=== PATIENT | female | born 1960 | race Caucasian/White ===

== ENCOUNTER 2016-11-18 04:43 | Inpatient (IN) | payer OTHER, MEDICAID ==
[~2016-11-18] VITALS: Ht 154.9 cm; Wt 113.4 kg
[~2016-11-18 04:43] MED LIST: ASPIR-LOW81 M1 PO; CIP500 PO; GOOD SENSE ASPI81 M3 PO; LOM PO; MOT800 PO; PRI20 PO; ZES20 PO; ZESTRIL20 MG PO; ZOF4 PO
--- NOTE | 2016-11-18 06:02 | NUR ---
PT PRESENTS TO ED WITH C/O RIGHT BIG TOE SWELLING AND REDNESS. PT REPORTS SHE FRACTURED TOE X2 MONTHS AGO AND WAS DIAGNOSED WITH OSTEOMYLITIS. PT STATES SHE WAS ON ANTIBIOTICS X3 WKS AND REDNESS AND PAIN HAD GONE AWAY. 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 PT DENIES ANY PAIN. PT DENIES ANY FEVERS. RESPIRATIONS EVEN AND UNLABORED. NO ACUTE DISTRESS NOTED. BED IN LOW POSITION. CALL LIGHT WITHIN REACH.
--- NOTE | 2016-11-18 06:10 | NUR ---
LAB AT BEDSIDE.
[2016-11-18 06:40] LABS: CALCIUM 9.2 mg/dL (8.5-10.1); CARBON DIOXIDE 26.9 mmol/L (21-32); CHLORIDE SERUM 101 mmol/L (98-107); GFR1 > 60 mL/min; GLUCOSE SERUM 184 mg/dL (74-106); POTASSIUM SERUM 3.8 mmol/L (3.5-5.1); SODIUM SERUM 137 mmol/L (136-145)
[2016-11-18 06:43] LABS: PLATELET COUNT 192 x10^3mcL (130-400)
[2016-11-18 06:44] LABS: RED CELL DISTRIBUTION WIDTH 18.3 % (11.5-14.5)
[2016-11-18 06:45] LABS: ALBUMIN 3.5 g/dL (3.4-5.0); ALKALINE PHOSPHATASE 82 U/L (46-116); ALT/SGPT 38 U/L (14-59); AST/SGOT 29 U/L (15-37); BILIRUBIN TOTAL 0.44 mg/dL (0.20-1.00); TOTAL PROTEIN, SERUM 8.3 g/dL (6.4-8.2)
--- NOTE | 2016-11-18 06:51 | NUR ---
PORTABLE XRAY AT BEDSIDE.
--- NOTE | 2016-11-18 07:12 | NUR ---
REPORT GIVEN TO [employer] VERIFIER.
[2016-11-18] MEDS ORDERED: COZAAR25 M1 PO (07:17)
[2016-11-18] MEDS ORDERED: LEVO-T25 MCG PO (07:17)
[2016-11-18] MEDS ORDERED: GOOD SENSE OMEP20 MG PO (07:18)
[2016-11-18] MEDS ORDERED: LOVASTATIN40 MG PO (07:18)
[2016-11-18] MEDS ORDERED: ADULT LOW DOSE81 MG PO (07:18)
[2016-11-18] MEDS ORDERED: FUROSEMIDE20 MG PO (07:19)
--- NOTE | 2016-11-18 07:42 | NUR ---
PT ADMIT TO TELE ROOM 221B GAVE REPORT TO CINDY
[2016-11-18 07:53] LABS: BAND NEUTROPHIL 3 % (0-10); BASOPHIL 0 % (0-2); MONOCYTE 13 % (0-7); PLATELET MORPHOLOGY PLATELETS NORMAL; SEGMENTED NEUTROPHILS 10 % (37-75)
[2016-11-18 07:54] LABS: rbc morphology (normal/abnorm) ABNORMAL (NORMAL)
--- NOTE | 2016-11-18 08:00 | NUR ---
RECEIVED PT. FROM ER DEPT. A/A/O X4. NO SOB, NO N/V NOTED. DENIES ANY PAIN AT THIS TIME. IV H/L NOTED TO R HAND. DAUGHTER AT BEDSIDE. DAUGHTER STATED HER MOM (THE PATIENT) WAS ADMITTED FOR INFECTION ON HER R GREAT TOE. R GREAT TOE IS MILDLY REDDENED AND SWOLLEN. B/P= 125/70, P= 76, R.R.= 18, T= 98.3, O2 SAT.= 98% (RA). PT. IS PLACED ON TELE. MONITOR #15, WHICH SHOWS NSR. BED IN LOW POS., CALL LIGHT WITHIN REACH. SIDE RAILS UP X3.
--- NOTE | 2016-11-18 09:00 | NUR ---
CALLED AND REPORTED REPEATED LACTIC ACID LEVEL (2.8) TO DR. DE LA PAZ (DO SAND TECHNOLOGIST). NO FURTHER ORDER RECEIVED AT THIS TIME.
[2016-11-18 09:45] VITALS: BP 121/68
[2016-11-18 10:33] VITALS: BP 125/70
[2016-11-18 10:36] LABS: FREE T4 1.19 ng/dL (0.76-1.46); T4(THYROXINE) 9.3 ug/dL (4.7-13.3)
[2016-11-18 10:48] LABS: T3 TOTAL 1.08 ng/mL
[2016-11-18 10:50] LABS: CHOLESTEROL/HDL RATIO 4.4; PHOSPHOROUS 4.3 mg/dL (2.5-4.9)
[2016-11-18 14:37] VITALS: BP 118/65
[2016-11-18 17:38] VITALS: BP 120/76
--- NOTE | 2016-11-18 18:49 | NUR ---
URINE COLLECTED AND SENT TO LAB. FOR UA, URINE C/S, AND UDS.
[2016-11-18 18:59] LABS: microscopic required? NO
--- NOTE | 2016-11-18 19:10 | NUR ---
RECEIVED PATIENT RESTING IN BED. PATIENT IS ALERT, AWAKE, AND ORIENTED X4. TELE #15 SINUS RHYTHM. PATIENT DENIES PAIN OR DISCOMFORT. LUNG SOUNDS CLEAR. NO SHORTNESS OF BREATH NOTED. MILD SWELLING AND REDNESS NOTED TO RIGHT GREAT TOE. IV FLUID INFUSING TO RIGHT HAND PER DOCTOR'S ORDER. INTACT AND PATENT. SAFETY AND COMFORT MEASURES IN PLACE. BED IN LOWEST POSITION. CALL LIGHT WITHIN REACH. WILL CONTINUE TO MONITOR.
[2016-11-18 19:26] LABS: UA SPECIFIC GRAVITY 1.015 (1.005-1.035); urine erythrocyte NEGATIVE (NEGATIVE)
[2016-11-18 19:36] LABS: AMPHETAMINE QUAL UR NONE DETECTED (NEG <=1000)
[2016-11-18 22:04] VITALS: BP 135/75
--- NOTE | 2016-11-19 05:15 | NUR ---
PATIENT RESTING IN BED. NO DISTRESS NOTED. IV FLUID INFUSING WELL. CALL LIGHT WITHIN REACH. WILL CONTINUE TO MONITOR.
[2016-11-19 05:57] VITALS: BP 138/79
[2016-11-19 06:33] LABS: CARBON DIOXIDE 30.8 mmol/L (21-32); CHLORIDE SERUM 104 mmol/L (98-107); GFR1 > 60 mL/min; GLUCOSE SERUM 124 mg/dL (74-106); POTASSIUM SERUM 3.8 mmol/L (3.5-5.1); SODIUM SERUM 141 mmol/L (136-145)
[2016-11-19 07:04] LABS: PLATELET COUNT 199 x10^3mcL (130-400)
[2016-11-19 07:07] LABS: RED CELL DISTRIBUTION WIDTH 18.4 % (11.5-14.5)
--- NOTE | 2016-11-19 07:15 | NUR ---
RECEIVED PATIENT AWAKE AND ALERT, NO ACUTE DISTRESS NOTED, DENIES PAIN, IV INTACT, CALL LIGHT WITHIN REACH. POC UPDATED.
--- NOTE | 2016-11-19 08:09 | NUR ---
DR. NULL SEEN PATIENT AT BEDSIDE, PATIENT DTR ASSISTED WITH TRANSLATION, PER DOCTOR RT BIG TOE SWELLING DUE TO OLD FX, REQUIRED ELEVATED. RLE ELEVATED WITH PILLOW ORDERED.
--- NOTE | 2016-11-19 08:32 | NUR ---
PATIENT RESTING IN BED NO COMPLAINTS, DR EVANS AND TEAM ROUND AT THIS TIME, ANSWER ALL QUESTIONS AND EXPLAINED POC, PER MD MONITOR RT GREAT TOE SWELLING, ABX TX, AND ORDER PT EVAL.
--- NOTE | 2016-11-19 09:23 | NUR ---
PATIENT RESTING IN BED NO COMPLAINT, DTR REMAIN AT BEDSIDE. DUE MEDS GIVEN, NEEDS ANTICIPATED. POC UPDATED. ALL QUESTIONS ANSWER. CONT TO MONITOR.
[2016-11-19 10:13] VITALS: BP 130/78
--- NOTE | 2016-11-19 10:58 | NUR ---
PATIENT AWAKE IN BED WITH FAMILY MEMBERS AT BEDSIDE, INFORM PATIENT OF GOING OF FLOOR FOR CT, IV HEPLOCK. TECH AT BEDSIDE WHEEL PATIENT OFF FLOOR.
[2016-11-19 11:11] LABS: BAND NEUTROPHIL 0 % (0-10); BASOPHIL 0 % (0-2); MONOCYTE 9 % (0-7)
[2016-11-19 11:12] LABS: PLATELET MORPHOLOGY PLATELETS DECREASED; rbc morphology (normal/abnorm) ABNORMAL (NORMAL)
--- NOTE | 2016-11-19 12:02 | NUR ---
PATIENT RESTING IN BED NO COMPLAINT, DUE MEDS GIVEN, ZOSYN IVPB GIVEN. NEEDS ANTICIPATED.
[2016-11-19 13:14] VITALS: BP 153/66
--- NOTE | 2016-11-19 13:21 | NUR ---
PATIENT RESTING IN BED, TELE BOX D/C ORDERED AND RETURN TO TELE ROOM, NEEDS ANTICIPATED. CALL LIGHT WITHIN REACH.
--- NOTE | 2016-11-19 13:53 | NUR ---
PT NOTE [id number] Pt IS A 56 Y/O FEMALE ADMITTED DUE OT SWOLLEN, RED TOE WITH PAIN; DX WITH SEPSIS DUE TO R FOOT CELLULITIS; H/O FX R HALLUX (SEP 2016). XRAY R TOES- NO FINDINGS SUGGEST OSTEOMYELITIS, NO FX/SUBLUXATION INVOLVING GREAT TOE. PMH: HTN, ARTHRITIS LEFT KNEE, HYPOTHYROIDISM Pt LIVES WITH FAMILY IN A SSH WITH 1 STEP; WAS ASSISTED WITH SOME ADLs; LIMITED AMBULATION USING SPC; USES W/C FOR COMMUNITY MOBILITY; DME: FWW, SPC, W/C. Pt WAS CLEARED FOR PT PER RN. Pt WAS SEEN AWAKE RESTING IN BED, SON PRESENT IN THE ROOM AND WAS PREFERRED TO ASSIST W/COMMUNICATION NEEDED; [employer]YR[employer] AVAILABLE. Pt AGREED TO PARTICIPATE W/PT. S:DENIES PAIN AT REST O:BP AT REST [id number], HR 87; SaO2 97% ON ROOM AIR BED MOBILITY: SUPINE<->SIT SBA; ROLLING SUP TRANSFERS: SIT-STAND SBA STANDING BALANCE F/F- GAIT 50 FT SPC CGA; ANTALGIC GAIT NOTED; DECREASED STRIDE LENGTH BLE; CGA FOR SAFETY; REPORTS PAIN ON LEFT KNEE 5/10 DURING GAIT. Pt WAS ASSISTED BTB; IV LINE INTACT, 2 SIDERAILS UP, CALL LIGHT AND TABLE IN REACH; APPRECIATED CARE; LEFT IN THE PRESENCE OF THE SON. RN NOTIFIED A:Pt DEMONSTRATES DECREASED STRENGTH, BALANCE/GAIT SAFETY; FALL RISK. Pt WAS EDUCATED ON SAFETY DURING GAIT/TRANSFERS INCLUDING PROPER HAND PLACEMENT/TECHNIQUE; VERBALIZED UNDERSTANDING. P:POC TO INCLUDE THEREX, THERACT, GAIT TRAINING, BALANCE EX, SAFETY EDUC; ONCE DAILY 6X/WK X1 WEEK. Pt MAY BENEFIT W/HHPT POST ACUTE. DX AND POC DISCUSSED W/JELLY FILTER TENDER. [id number] PVE(2) SET-UP [id number], [id number], TUG SCORE=11sec [id number] THEREX FOR BOTH LE PERFORMED IN SITTING INCLUDING LAQ, ANKLE PUMPS, HIP ABD, AND SEATED MARCHING; X 10 REPS EACH. THEREX8
--- NOTE | 2016-11-19 17:25 | NUR ---
ATIENT SIT UP IN BED NO COMPLAINTS, DTR AT BEDSIDE. PATIENT REFUSED INSULIN FOR BS 158. DINNER TRAY ON TABLE. ZOSYN IVPB GIVEN. NEEDS ANTICIPATED.
[2016-11-19 17:27] VITALS: BP 137/82
--- NOTE | 2016-11-19 20:00 | NUR ---
PT A/A/O X4. DENIES DIZZINESS AND HEADACHE. BREATH SOUNDS CLEAR. BREATHING EVEN AND UNLABORED ON ROOM AIR. DENIES CHEST PAIN AND PRESSURE. BOWEL SOUNDS ACTIVE. NO C/O N/V AND ABD PAIN. RIGHT GREAT TOE MILD SWELLING AND LOWER EXTREMITY ELEVATED ON A PILLOW. NO C/O PAIN THUS FAR. IV INTACT ON THE RIGHT HAND INFUSING WITH NS AT 126 ML/HR. MADE PT COMFORTABLE. PLACED CALL LIGHT WITH IN REACH. WILL CONTINUE TO MONITOR.
--- NOTE | 2016-11-19 21:50 | NUR ---
PT C/O HEADACHE. GAVE PT TYLENOL PO. PT TOLERATED IT WELL. WILL CONTINUE TO MONITOR.
[2016-11-19 22:27] VITALS: BP 131/79
--- NOTE | 2016-11-20 01:03 | NUR ---
PT RESTING WITH EYES CLOSED. SHOWS NO DISTRESS AND DISCOMFORT. MADE PT COMFORTABLE. WILL CONTINUE TO MONITOR.
--- NOTE | 2016-11-20 05:37 | NUR ---
PT QUIET AND RESTING. NO SIGNIFICANT CHANGES NOTED THUS FAR. IV INTACT AND INFUSING ORDERED. MADE PT COMFORTABLE. WILL ENDORSE TO THE AM NURSE ACCORDINGLY.
[2016-11-20 06:32] VITALS: BP 115/70
--- NOTE | 2016-11-20 07:15 | NUR ---
RECEIVED PATIENT SAT UP AT THE SIDE OF BED, DENIES PAIN BUT C/O HOT, AC IS ON FOR PATIENT, PATIENT STATE AFTER RECEIVING ZOSYN SHE FEEL VERY HOT, WILL INFORM MD, NO OTHER SX NOTED. CONT TO MONITOR.
--- NOTE | 2016-11-20 09:32 | NUR ---
PT NOTES TIME [id number] S: CLEARED BY RN FOR P.T. TX. PATIENT IS AWAKE & ALERT IN A SEMI [place] POSITION IN BED. AGREEABLE TO P.T. TX. C/O L KNEE PAIN 12/12. O: VITALS AT REST 107/70, HR 85 BPM, SPO2 ON RA 98% BED MOBILITY: SUPINE<>SIT SBA. PATIENT USES SIDERAIL TO ASSIST W/ BED MOBILITY. WHILE SEATED AT EOB PATIENT DEMO'S G STATIC SITTING BALANCE. TRANSFER: SIT<>STAND W/ SPC SBA. GAIT: 50FT X 2 W/ SPC CGA/SBA. DURING GAIT TRAINING PATIENT DEMO'S ANTALGIC GAIT. L TOE OUT. WBOS. DECREASE GAIT VELOCITY. SHORTENED STEP LENGTHS. AT TIMES PATIENT HAS A STEP TO GAIT PATTERN. UNSTEADY W/ GAIT. GAIT DISTANCE LIMITED DUE TO L KNEE PAIN, PATIENT DAUGHTER REPORTS "ARTHRITIS." EDUCATED PATIENT & DAUGHTER ON ENERGY CONSERVATION, HEP FOR STRENGTHENING, & SAFETY FOR FALL PREVENTION W/ G UNDERSTANDING. COOPERATIVE & APPRECIATIVE OF CARE. THER EX ANKLE DF/PF, KNEE FLEX/EXT, HIP FLEXION & BILAT UE CHENTE. PATIENT IS SAFELY & COMFORTABLY SITTING UP AT EOB W/ CALL BUTTON & TABLE IN REACH. LEFT IN CARE OF DAUGHTER. RN NOTIFIED. P: DISCUSSED W/ PRIMARY PHYSICAL THERAPIST [id number]',[id number]',[id number]'
--- NOTE | 2016-11-20 09:41 | NUR ---
PATIENT RESTING IN BED NO COMPLAINTS, DTR REMAIN AT BEDSIDE. ALL DUE MEDS GIVEN. CONT TO MONITOR.
[2016-11-20 10:21] VITALS: BP 115/70
[2016-11-20 10:26] VITALS: BP 102/68
--- NOTE | 2016-11-20 12:10 | NUR ---
PATIENT RESTING IN BED WITH DTR AT BEDSIDE, PER DTR PATIENT DON'T WANT TO TAKE MEDS WANT TO GO HOME.
--- NOTE | 2016-11-20 12:30 | NUR ---
PATIENT SIT UP IN THE CHAIR NO COMPLAINT, ALREADY DRESS, IV DC'D AND INTACT, RETAKE PICTURE OF RT BIG TOE PRIOR D/C. DISCHARGE AND DM/CELLULITIS TEACHING INFORMATIONS GIVING TO PATIENT, NO PRESCRIPTION. PATIENT VERBALIZE UNDERSTAND F/U APPT. NO FURTHER QUESTIONS.
--- NOTE | 2016-11-20 12:51 | NUR ---
PATIENT IS WHEEL OUT BY CELL EFFICIENCY SUPERVISOR AND ACCOMPANIED BY DTR WITH ALL BELONGINGS WITH DTR.
== END 2016-11-20 12:50 | disposition home or self-care (01) | DRG 872 ==
LOC: ED 04:43 → MU 07:17 → DU 07:17 → MU 11-19 15:45
PROVIDERS: Emergency Medicine; ADMIT Family Medicine
DX: A41.9 Sepsis, unspecified organism (principal); Z68.42 Body mass index [BMI] 45.0-49.9, adult; D68.69 Other thrombophilia; L03.031 Cellulitis of right toe; R73.03 Prediabetes; M19.90 Unspecified osteoarthritis, unspecified site; E03.9 Hypothyroidism, unspecified; I36.1 Nonrheumatic tricuspid (valve) insufficiency; R91.8 Other nonspecific abnormal finding of lung field; E61.1 Iron deficiency; E66.01 Morbid (severe) obesity due to excess calories; Z66 Do not resuscitate; I25.10 Atherosclerotic heart disease of native coronary artery without angina pectoris; I70.293 Other atherosclerosis of native arteries of extremities, bilateral legs
CPT/HCPCS: 80307; 82962; 83880; 84439; 97110-GP; 97116-GP; 97530-GP; G0480; J2543; J3490; J7030; Q0092

== ENCOUNTER 2017-05-14 09:09 | Emergency (ER) | payer OTHER, MEDICAID ==
[~2017-05-14] VITALS: Ht 170.2 cm; Wt 116.1 kg
[~2017-05-14 09:09] MED LIST changes: +ADULT LOW DOSE81 MG PO; +COZAAR25 M1 PO; +FUROSEMIDE20 MG PO; +GOOD SENSE OMEP20 MG PO; +LEVO-T25 MCG PO; +LOVASTATIN40 MG PO
[2017-05-14 10:30] VITALS: BP 130/64
== END 2017-05-14 10:30 | disposition home or self-care (01) ==
LOC: ED 09:09
DX: S92.531A Displaced fracture of distal phalanx of right lesser toe(s), initial encounter for closed fracture (principal); I10 Essential (primary) hypertension; E78.00 Pure hypercholesterolemia, unspecified; M06.9 Rheumatoid arthritis, unspecified; Z88.1 Allergy status to other antibiotic agents; Z88.5 Allergy status to narcotic agent; W22.8XXA Striking against or struck by other objects, initial encounter; Y93.89 Activity, other specified; Y92.89 Other specified places as the place of occurrence of the external cause; Y99.8 Other external cause status
CPT/HCPCS: Q0092

== ENCOUNTER 2017-08-10 02:47 | Emergency (ER) | payer OTHER, MEDICAID ==
[~2017-08-10] VITALS: Ht 162.6 cm; Wt 120.7 kg
[2017-08-10 02:58] VITALS: BP 150/97; Ht 162.6 cm; Wt 120.7 kg
== END 2017-08-10 07:32 | disposition left against medical advice (07) ==
LOC: ED 02:47
DX: Z53.21 Procedure and treatment not carried out due to patient leaving prior to being seen by health care provider (principal)

== ENCOUNTER 2017-10-12 13:46 | Emergency (ER) | payer OTHER, MEDICAID ==
[~2017-10-12] VITALS: Ht 162.6 cm; Wt 119.7 kg
[2017-10-12 14:08] VITALS: Ht 162.6 cm; Wt 119.7 kg
[2017-10-12 16:25] LABS: PLATELET COUNT 197 x10^3mcL (130-400)
[2017-10-12 16:34] LABS: CALCIUM 9.2 mg/dL (8.5-10.1); CARBON DIOXIDE 25.2 mmol/L (21-32); CHLORIDE SERUM 100 mmol/L (98-107); GFR1 > 60 mL/min; GLUCOSE SERUM 140 mg/dL (74-106); POTASSIUM SERUM 3.7 mmol/L (3.5-5.1); SODIUM SERUM 137 mmol/L (136-145)
[2017-10-12 16:35] LABS: RED CELL DISTRIBUTION WIDTH 19.4 % (11.5-14.5)
[2017-10-12 16:38] LABS: ALBUMIN 3.6 g/dL (3.4-5.0); ALKALINE PHOSPHATASE 91 U/L (46-116); ALT/SGPT 34 U/L (14-59); AST/SGOT 27 U/L (15-37); BILIRUBIN TOTAL 0.58 mg/dL (0.20-1.00)
[2017-10-12 16:44] LABS: TOTAL PROTEIN, SERUM 8.8 g/dL (6.4-8.2)
[2017-10-12 16:56] LABS: ATYPICAL LYMPH 1 %; BAND NEUTROPHIL 1 % (0-10); BASOPHIL 0 % (0-2); METAMYELOCTE 1 % (0-2); MONOCYTE 10 % (0-7); SEGMENTED NEUTROPHILS 5 % (37-75)
[2017-10-12 16:58] LABS: rbc morphology (normal/abnorm) NORMAL (NORMAL)
[2017-10-12 17:13] VITALS: BP 135/91
== END 2017-10-12 17:13 | disposition home or self-care (01) ==
LOC: ED 13:46
PROVIDERS: Emergency Medicine
DX: R51 Headache (principal); I65.29 Occlusion and stenosis of unspecified carotid artery; I10 Essential (primary) hypertension; H93.19 Tinnitus, unspecified ear; E78.00 Pure hypercholesterolemia, unspecified; M06.9 Rheumatoid arthritis, unspecified; E03.9 Hypothyroidism, unspecified; Z88.1 Allergy status to other antibiotic agents; Z90.710 Acquired absence of both cervix and uterus; Z88.5 Allergy status to narcotic agent
CPT/HCPCS: 36415

== ENCOUNTER 2018-03-25 15:24 | Emergency (ER) | payer OTHER, MEDICAID ==
[~2018-03-25] VITALS: Ht 162.6 cm; Wt 119.3 kg
[2018-03-25 15:41] VITALS: Ht 162.6 cm; Wt 119.3 kg
[2018-03-25 16:53] LABS: CALCIUM 8.8 mg/dL (8.5-10.1); CARBON DIOXIDE 26.6 mmol/L (21-32); CHLORIDE SERUM 97 mmol/L (98-107); GFR1 > 60 mL/min; GLUCOSE SERUM 155 mg/dL (74-106); POTASSIUM SERUM 3.4 mmol/L (3.5-5.1); SODIUM SERUM 132 mmol/L (136-145)
[2018-03-25 16:57] LABS: ALKALINE PHOSPHATASE 101 U/L (46-116); ALT/SGPT 34 U/L (14-59); AST/SGOT 24 U/L (15-37); BILIRUBIN TOTAL 0.8 mg/dL (0.20-1.00); LIPASE 161 IU/L (73-393)
[2018-03-25 16:58] LABS: ALBUMIN 3.2 g/dL (3.4-5.0); TOTAL PROTEIN, SERUM 8.3 g/dL (6.4-8.2)
[2018-03-25 17:02] LABS: microscopic required? NO
[2018-03-25 17:13] LABS: urine erythrocyte NEGATIVE (NEGATIVE)
[2018-03-25 17:33] LABS: PLATELET COUNT 174 x10^3mcL (130-400); RED CELL DISTRIBUTION WIDTH 20.1 % (11.5-14.5)
[2018-03-25 17:35] LABS: BAND NEUTROPHIL 8 % (0-10); SEGMENTED NEUTROPHILS 4 % (37-75)
[2018-03-25 17:36] LABS: ATYPICAL LYMPH 7 %; MONOCYTE 22 % (0-7); rbc morphology (normal/abnorm) ABNORMAL (NORMAL)
[2018-03-25 17:37] LABS: PLATELET MORPHOLOGY PLATELETS NORMAL
[2018-03-25 18:49] VITALS: BP 106/73
== END 2018-03-25 18:49 | disposition home or self-care (01) ==
LOC: ED 15:24
PROVIDERS: Emergency Medicine
DX: K57.92 Diverticulitis of intestine, part unspecified, without perforation or abscess without bleeding (principal); D72.819 Decreased white blood cell count, unspecified; I10 Essential (primary) hypertension; Z90.710 Acquired absence of both cervix and uterus; E03.9 Hypothyroidism, unspecified; Z88.1 Allergy status to other antibiotic agents; Z88.5 Allergy status to narcotic agent
CPT/HCPCS: 36415; 87046; 87046-59; Q0162

== ENCOUNTER 2018-05-11 20:22 | Emergency (ER) | payer OTHER, MEDICAID ==
[~2018-05-11] VITALS: Ht 157.5 cm; Wt 117.0 kg
[2018-05-11 20:32] VITALS: Ht 157.5 cm; Wt 117.0 kg
[2018-05-11 21:35] LABS: PLATELET COUNT 174 x10^3mcL (130-400)
[2018-05-11 21:37] LABS: CALCIUM 8.9 mg/dL (8.5-10.1); CARBON DIOXIDE 26.5 mmol/L (21-32); CREATININE SERUM 1.1 mg/dL (0.6-1.0); POTASSIUM SERUM 3.4 mmol/L (3.5-5.1)
[2018-05-11 21:40] LABS: RED CELL DISTRIBUTION WIDTH 18.5 % (11.5-14.5)
[2018-05-11 21:41] LABS: BILIRUBIN TOTAL 0.5 mg/dL (0.20-1.00)
[2018-05-11 21:43] LABS: TOTAL PROTEIN, SERUM 8.6 g/dL (6.4-8.2)
[2018-05-11 21:52] LABS: UA SPECIFIC GRAVITY <=1.005 (1.005-1.035); microscopic required? YES; urine erythrocyte 3+ (NEGATIVE)
[2018-05-11 22:32] LABS: ATYPICAL LYMPH 3 %; BAND NEUTROPHIL 0 % (0-10); BASOPHIL 0 % (0-2); MONOCYTE 20 % (0-7); SEGMENTED NEUTROPHILS 12 % (37-75)
[2018-05-11 22:34] LABS: rbc morphology (normal/abnorm) ABNORMAL (NORMAL)
[2018-05-11 22:35] LABS: PLATELET MORPHOLOGY PLATELETS NORMAL
[2018-05-12 00:06] VITALS: BP 130/86
== END 2018-05-12 00:06 | disposition home or self-care (01) ==
LOC: ED 20:22
PROVIDERS: Emergency Medicine
DX: N39.0 Urinary tract infection, site not specified (principal); K29.70 Gastritis, unspecified, without bleeding; I10 Essential (primary) hypertension; E03.9 Hypothyroidism, unspecified; E78.00 Pure hypercholesterolemia, unspecified; M81.0 Age-related osteoporosis without current pathological fracture; Z90.710 Acquired absence of both cervix and uterus; Z88.6 Allergy status to analgesic agent; Z88.1 Allergy status to other antibiotic agents
CPT/HCPCS: C9113; J1956; J2405; J3490

== ENCOUNTER 2019-01-25 15:53 | Emergency (ER) | payer OTHER, MEDICAID ==
[~2019-01-25] VITALS: Ht 162.6 cm; Wt 105.7 kg
[2019-01-25 15:58] VITALS: Ht 162.6 cm; Wt 105.7 kg
[2019-01-25 17:14] VITALS: BP 135/77
== END 2019-01-25 17:14 | disposition home or self-care (01) ==
LOC: ED 15:53
DX: S92.352A Displaced fracture of fifth metatarsal bone, left foot, initial encounter for closed fracture (principal); I10 Essential (primary) hypertension; E78.00 Pure hypercholesterolemia, unspecified; Z98.890 Other specified postprocedural states; E03.9 Hypothyroidism, unspecified; Z88.1 Allergy status to other antibiotic agents; Z88.5 Allergy status to narcotic agent; Z88.6 Allergy status to analgesic agent; W18.39XA Other fall on same level, initial encounter; Y93.89 Activity, other specified; Y92.89 Other specified places as the place of occurrence of the external cause; Y99.8 Other external cause status
CPT/HCPCS: Q0092

== ENCOUNTER 2019-09-30 00:02 | Emergency (ER) | payer OTHER, MEDICAID ==
[~2019-09-30] VITALS: Ht 157.5 cm; Wt 117.1 kg
[2019-09-30 00:12] VITALS: Ht 157.5 cm; Wt 117.1 kg
[2019-09-30 00:54] VITALS: BP 147/75
== END 2019-09-30 04:10 | disposition left against medical advice (07) ==
LOC: ED 00:02
DX: K57.32 Diverticulitis of large intestine without perforation or abscess without bleeding (principal)
CPT/HCPCS: 36415; J1885